=== PATIENT | male | born 1960 | race Caucasian/White ===

== ENCOUNTER 2020-12-26 01:14 | Emergency (ER) | payer SELFPAY ==
[~2020-12-26 01:14] MED LIST: LEVAQUIN750 MG PO; PERCOCET 10-321 EACH PO
[2020-12-26] MEDS ORDERED: IBUPROFEN800 MG PO (03:12)
[2020-12-26] MEDS ORDERED: PERCOCET 5/325 T1 EA PO (03:46)
== END 2020-12-26 03:16 | disposition home or self-care (01) ==
LOC: ER1 01:14
DX: S60.211A Contusion of right wrist, initial encounter (principal); F17.210 Nicotine dependence, cigarettes, uncomplicated; Z90.89 Acquired absence of other organs; W22.8XXA Striking against or struck by other objects, initial encounter; Y92.009 Unspecified place in unspecified non-institutional (private) residence as the place of occurrence of the external cause
CPT/HCPCS: 29125; 73110; 73130; 96372; 99283; J1885

== ENCOUNTER 2021-07-18 10:05 | Inpatient (IN) | payer SELFPAY ==
[~2021-07-18] VITALS: Ht 185.4 cm; Wt 81.6 kg
[~2021-07-18 10:05] MED LIST changes: +IBUPROFEN800 MG PO; +PERCOCET 5/325 T1 EA PO
[2021-07-18 11:34] LABS: HEMOGLOBIN 15.1 gm/dl (14.0-17.5); RED BLOOD COUNT 4.8 M/UL (4.20-5.50); WHITE BLOOD COUNT 13.2 K/UL (4.5-11.0)
[2021-07-18 11:52] LABS: BUN/CREATININE RATIO 14 (0-10)
[2021-07-18] MEDS ORDERED: GINSENG100 MG PO (16:41)
[2021-07-19 06:51] LABS: HEMOGLOBIN 13.9 gm/dl (14.0-17.5); RED BLOOD COUNT 4.5 M/UL (4.20-5.50); WHITE BLOOD COUNT 13.6 K/UL (4.5-11.0)
[2021-07-19] MEDS ORDERED: HYDROCODON-ACE1 EAC2 PO (12:45)
[2021-07-19] MEDS ORDERED: COLACE100 MG PO (12:45)
== END 2021-07-19 14:45 | disposition home or self-care (01) | DRG 350 ==
LOC: ER1 10:05 → CDU 11:52 → MED SURG 4 11:52 → CDU 11:52 → MED SURG 4 16:36
PROVIDERS: Emergency Medicine; ADMIT Surgery
PROC: 0DTU0ZZ Resection of Omentum, Open Approach (ICD-10-PCS; 2021-07-18)
PROC: 0YQ60ZZ Repair Left Inguinal Region, Open Approach (ICD-10-PCS; principal; 2021-07-18 13:53)
DX: K40.90 Unilateral inguinal hernia, without obstruction or gangrene, not specified as recurrent (principal); K55.069 Acute infarction of intestine, part and extent unspecified; Z20.89 Contact with and (suspected) exposure to other communicable diseases; K59.00 Constipation, unspecified
CPT/HCPCS: 36415; 71045; 80053; 83605; 85025; 85027; 93005; 99285; C1781; J0690; J1170; J2001; J2250; J2270; J2704; J2710; J2795; J3010; J7030; J7120; U0002